=== PATIENT | male | born 1985 ===

== ENCOUNTER 2025-02-26 09:06 | Emergency (ER) | payer OTHER, SELFPAY ==
[2025-02-26 09:08] VITALS: BP 120/71
--- NOTE | 2025-02-26 09:26 | ED.GENMED ---
History of Present Illness
General
Chief Complaint: Abdominal Symptoms
Time Seen by Provider: 02/26/25 09:16
History of Present Illness
History of Present Illness:
Patient is a 39-year-old male who is otherwise healthy presenting to the emergency department abdominal pain. The past 2 days patient is had intermittent right lower quadrant abdominal pain that radiates to his bellybutton. He states that sharp.
No urinary symptoms. No fevers chills. No nausea or vomiting. No change in his bowel movement. This never happened to him before. Normal p.o. intake.
Phy Exam
Physical Exam
Physical Exam:
GENERAL: in no acute distress
HEENT: normocephalic, extraocular movements intact, moist oral mucosa
NECK: normal inspection
RESPIRATORY: no respiratory distress, clear to auscultation bilaterally
CARDIOVASCULAR: regular rate and rhythm
ABDOMEN/: soft, non-distended, right lower quadrant and periumbilical tenderness to palpation no rebound or guarding
EXTREMITIES: non-tender, no edema/swelling
NEUROLOGIC: awake and alert, moves all extremities
SKIN: warm
Course
Orders/Labs/Results
Orders:
Orders
02/26/25 09:25
Ketorolac [Toradol] 15 mg IV NOW STA
02/26/25 09:26
CT Abd/pelvis W Iv Cont Urgent
Comment:
Reason For Exam: RLQ pain
02/26/25 09:35
Complete Blood Count/With Diff Urgent
Urinalysis Reflex To Culture Urgent
Date Specimen was Collected: 02/26/25
Time Specimen was Collected: 09:27
Urine Microscopic Reflex Cult Urgent
02/26/25 10:33
Basic Metabolic Panel Urgent
02/26/25 13:00
Iohexol [Omnipaque] See Protocol PO NOW STA
Abnormal Lab Results
02/26/25
09:35
WBC 4.6 L 10^3/uL
(4.8-10.8)
Urine Albumin (Reflex) 1+ A
(Neg - Trace)
02/26/25 09:35
02/26/25 10:33
Vital Signs
Initial and Last Documented VS:
Initial Vital Signs
Temp Pulse Resp BP Pulse Ox
98.4 F 69 16 120/71 100
02/26/25 09:08 02/26/25 09:08 02/26/25 09:08 02/26/25 09:08 02/26/25 09:08
Last Documented Vital Signs
Temp Pulse Resp BP Pulse Ox
98.4 F 76 16 124/76 98
02/26/25 09:08 02/26/25 12:00 02/26/25 12:00 02/26/25 12:00 02/26/25 12:00
MDM/Problems Addressed
Differential Diagnosis Includes:
Patient is a 39-year-old man presenting to the emergency department with intermittent right lower quadrant abdominal pain. On arrival vitals unremarkable and exam does show tenderness palpation to the right lower quadrant as well as the
periumbilical region. Concern for appendicitis versus kidney stone versus UTI. Consider testicular pathology though less likely given history and exam findings. Will check blood work. CT scan. Will pain control
*Pulse Oximetry
SaO2: 100
Oxygen Mode of Delivery: Room air
Patient hypoxic: no
*Critical Care Note
Total Time (30-74mins, 75-104mins- exclusive of procedures): Not Applicable
Update Note
Update Note:
On reevaluation pain has slightly improved. Blood work is here reassuring. Urine is negative for infection. CT scan per my interpretation with significant amount of constipation. Per the official read there is likely a benign hemangioma as well
as moderate amount of stool. There is no stranding to the right lower quadrant no the appendix is not discretely identified. Radiology did recommend repeating CAT scan with oral contrast for further evaluation. I did discuss with patient and gave
him options of either repeating CAT scan or p.o. trial and if successful to discharge home and that he could come back for repeat CAT scan if the pain came back. However patient states that he still has ongoing burning pain and he continues to
point to the right lower quadrant so we will give oral contrast for a full detailed evaluation.
I did receive a call from radiology. He is able to visualize the appendix. No signs of appendicitis. I did update patient of this finding. He is reassured. He is tolerating p.o. Will discharge patient at this time. Patient will start using
MiraLAX for constipation. Tylenol ibuprofen as needed for further pain.
ED Attending Note
-
Portions of this chart may have been created with voice recognition software.� Occasional wrong word or��sound alike� substitutions may have occurred due to the inherent limitations of voice recognition software.
Discharge Plan
Departure
Patient Disposition: Home (Routine Discharge)
Date of Disposition: 02/26/25
Time of Disposition: 13:46
Patient with high blood pressure during this ER visit?: No
Discharge Problem:
Abdominal pain
Instructions: Constipation, Adult (DC)
Referrals:
NONE,* [Family Provider, Internal Medicine]
Stand Alone Forms: Return to Work
Activity Restrictions/Additional Instructions:
Thank You for choosing [facility].
It was a pleasure meeting you and taking part in your care. We hope for your continued healing and wellness.
You were seen in the Emergency Department today for abdominal pain. While you were here we performed blood work and CT scan, which was reassuring. Please start taking MiraLAX as discussed. For the abdominal pain you may also use Tylenol/ibuprofen
We would like for you to follow up with your primary care physician for further evaluation. If you experience fever, worsening of your symptoms, or develop any other new or concerning symptoms, please return to the Emergency Department immediately.
Please see the attached sheet for additional information.
Interventions
Interventions:
*Risk Screen - Suicide Last Done: 02/26/25 09:46
*General Assessment Last Done: 02/26/25 09:46
*Neglect/Abuse Screening Last Done: 02/26/25 09:46
*ED COVID-19 Vaccine History Last Done: 02/26/25 09:46
*ED Influenza Vaccine History Last Done: 02/26/25 09:46
LO-Ynshfa-Atymnhmefo Assessment Last Done: 02/26/25 09:46
Discharge Date and Time
Print Language: [id number]
[2025-02-26] MEDS: TORADOL 15 MG IV (09:36)
[2025-02-26 09:45] LABS: Hematocrit 44.1 % (39.0-52.0); Hemoglobin 14.8 g/dL (13.0-18.0); Mean Corp Hgb Conc. 33.6 g/dL (33.0-37.0); Mean Corpuscular Volume 82.0 fL (80.0-94.0); Nucleated Red Blood Cells % 0 % (-); Platelet Count 213 10^3/uL (130-400); Red Cell Dist. Width 12.3 % (11.5-14.5)
[2025-02-26 09:46] LABS: Urine Character Clear (Clear)
[2025-02-26 10:16] LABS: Urine Red Blood Cell 0-2 /HPF (0-2)
[2025-02-26 11:08] LABS: Blood Urea Nitrogen 11 mg/dl (9-20); Calcium 9.0 mg/dl (8.4-10.2); Carbon Dioxide 30 mmol/L (22-30); Chloride 102 mmol/L (98-107); Glucose 82 mg/dl (70-99); Sodium 135 mmol/L (135-145); eGFR > 60.00
[2025-02-26 12:00] VITALS: BP 124/76
[2025-02-26] MEDS: OMNIPAQUE 50 ML PO (13:08)
== END 2025-02-26 14:11 | disposition home or self-care (01) ==
LOC: EMR 09:06
PROVIDERS: EMERGENCY PHYSICIAN Student in an Organized Health Care Education/Training Program
DX: R10.31 Right lower quadrant pain (principal); K59.00 Constipation, unspecified
CPT/HCPCS: 96374; 99284; 74177; 80048; 81003; 81015; 85025; Q9967